=== PATIENT | female | born 1950 | race Caucasian/White ===

== ENCOUNTER 2017-12-01 11:03 | Observation (INO) | payer OTHER ==
--- NOTE | 2017-12-01 11:30 | CPEKG ---
Heart Rate: 153 RR Interval: 392 QRSD Interval: 68 QT Interval: 292 QTC Interval: 466 QRS [place]: 41 T Wave [place]: 47 EKG Severity - ABNORMAL ECG - EKG Impression: ATRIAL FIBRILLATION WITH RAPID V-RATE EKG Impression: LOW VOLTAGE IN FRONTAL LEADS EKG Impression: ABNRM R PROG, CONSIDER ASMI OR LEAD PLACEMENT Electronically Signed By: Figueroa Izquierdo 03-Dec-2017 02:38:42
[2017-12-01] MEDS ORDERED: ASPIRIN 81 MG CHEWABLE TAB ONE (11:48)
[2017-12-01] MEDS ORDERED: DILTIAZEM 25 MG/5 ML VIAL IVP ONE ×2 (11:49→11:52)
[2017-12-01] MEDS ORDERED: DILTIAZEM 125 MG in D5W 125 ML IV ONE (11:52)
[2017-12-01] MEDS ORDERED: NS 500 ML IV ONE (11:52)
[2017-12-01] MEDS ORDERED: ASPIRIN 81 MG CHEWABLE TAB PO ONE (11:52)
[2017-12-01 11:59] LABS: PLATELET COUNT 307 10^3/uL (150-400)
[2017-12-01 12:10] LABS: INR 1.01 (0.83-1.16); PROTIME(PATIENT) 13.5 SEC (12.0-15.0)
--- NOTE | 2017-12-01 12:16 | EDPHY ---
H & P Time Seen by Provider: 12/01/17 11:42 HPI/ROS: CHIEF COMPLAINT: Palpitations, chest pain, dizziness HISTORY OF PRESENT ILLNESS: Patient is a 67-year-old female presents emergency department multiple complaints. She states at 5:00 a.m. She noted some palpitations. She was already awake when the symptoms started. She then went water dog at 7:30 a.m.. She felt lightheaded and dizzy. She states her symptoms have been fairly persistent. Patient also notes that on Sunday she developed pain under her left lateral ribs. She states this felt similar to early onset of zoster. She has not noticed any rash but she did take Valtrex. REVIEW OF SYSTEMS: My complete review of systems is negative except as mentioned in the HPI. Past Medical/Surgical History: Includes thyroid cancer, zoster Past surgical history: Thyroid resection Smoking Status: Never smoked Physical Exam: Vitals noted GENERAL: Well-appearing, in no acute distress, alert. HEENT: Eyes normal to inspection, normal pharynx, no signs of dehydration. NECK: No thyromegaly, no lymphadenopathy, supple. RESPIRATORY: Clear to auscultation bilaterally, no rales, rhonchi or wheezing. CVS: Tachycardia with a irregularly irregular rhythm, no rubs, murmurs, or gallops. ABDOMEN: Soft, nontender, nondistended, no organomegaly. BACK: Normal to inspection, no CVA tenderness. SKIN: Normal color, no rash, warm, dry. No pallor. EXTREMITIES: No pedal edema, no calf tenderness, no Homans sign or cords, no joint swelling. NEURO/PSYCH: Alert and oriented , normal mood and affect, normal motor sensory exam. No obvious cranial nerve deficit. Constitutional: Initial Vital Signs Temperature (C) 36.4 C 12/01/17 11:10 Heart Rate 92 12/01/17 11:10 Respiratory Rate 18 12/01/17 11:10 Blood Pressure 100/68 12/01/17 11:10 O2 Sat (%) 98 12/01/17 11:10 O2 Delivery Mode Room Air Allergies/Adverse Reactions: morphine Allergy (Severe, Verified 12/01/17 11:08) Hypotension acetaminophen [From Percocet] Allergy (Intermediate, Verified 12/01/17 11:08) Itching hydromorphone HCl [From Dilaudid] Allergy (Intermediate, Verified 12/01/17 11:08 ) Itching oxycodone HCl [From Percocet] Allergy (Intermediate, Verified 12/01/17 11:08) Itching meperidine HCl [From Demerol] Allergy (Mild, Verified 12/01/17 11:08) GI upset Home Medications: Medication Instructions Recorded Levothyroxine [Synthroid 112 mcg 112 mcg PO DAILY06 07/22/14 (*)] Valacyclovir HCl [Valtrex] 1,000 mg PO TID PRN 12/01/17 Medical Decision Making ED Course/Re-evaluation: In the emergency department an IV was placed. Laboratory studies, EKG and chest x-ray were ordered. The patient was given diltiazem 10 mg IV bolus. She was subsequently placed on a diltiazem drip. Reviewed the patient's laboratory studies. Her CBC and chemistry unremarkable. Her D-dimer was negative. Troponin was negative. TSH is pending. I discussed case with the hospitalist service. Dr. Mccray will admit. On recheck the patient's heart rate was 102. She was still in atrial fibrillation. I discussed the case with Cardiology. I discussed the plan with the patient. I answered all her questions. I rechecked the patient on numerous occasions. Differential Diagnosis: My differential includes but is not limited to atrial fibrillation, atrial fibrillation with rapid ventricular response, dysrhythmia, electrolyte abnormality, sugar abnormality, thyroid disease, ACS, acute AL, PE Critical Care Time: The patient required 35 min of critical care time. This was exclusive of any unbundled procedure. This was due to the patient's rapid ventricular rate from atrial fibrillation, need for or diltiazem bolus and drip, rechecks, consultation with the hospitalist service and Cardiology. - Data Points Laboratory Results: Laboratory Results 12/01/17 11:30 12/01/17 11:30 12/01/17 12/01/17 12/01/17 11:47 11:30 11:30 WBC RBC Hgb Hct MCV MCH MCHC RDW Plt Count MPV Neut % (Auto) Lymph % (Auto) Valley % (Auto) Eos % (Auto) Baso % (Auto) Nucleat RBC Rel Count Absolute Neuts (auto) Absolute Lymphs (auto) Absolute Monos (auto) Absolute Eos (auto) Absolute Basos (auto) Absolute Nucleated RBC Immature Gran % Immature Gran # PT 13.5 SEC SEC (12.0-15.0) INR 1.01 (0.83-1.16) APTT 28.4 SEC SEC (23.0-38.0) D-Dimer < 0.27 ug/mLFEU ug/mLFEU (0.00-0.50) Sodium 143 mEq/L mEq/L (135-145) Potassium 4.6 mEq/L mEq/L (3.3-5.0) Chloride 109 mEq/L mEq/L (97-110) Carbon Dioxide 20 mEq/l L mEq/l (22-31) Anion Gap 14 mEq/L mEq/L (8-16) BUN 19 mg/dL mg/dL (7-23) Creatinine 1.0 mg/dL mg/dL (0.6-1.0) Estimated GFR 55 Glucose 98 mg/dL mg/dL (70-100) Calcium 9.2 mg/dL mg/dL (8.5-10.4) POC Troponin I 0.02 ng/mL ng/mL (0.00-0.08) TSH Pending 12/01/17 11:30 WBC 9.13 10^3/uL 10^3/uL (3.80-9.50) RBC 4.59 10^6/uL 10^6/uL (4.18-5.33) Hgb 13.9 g/dL g/dL (12.6-16.3) Hct 41.6 % % (38.0-47.0) MCV 90.6 fL fL (81.5-99.8) MCH 30.3 pg pg (27.9-34.1) MCHC 33.4 g/dL g/dL (32.4-36.7) RDW 13.5 % % (11.5-15.2) Plt Count 307 10^3/uL 10^3/uL (150-400) MPV 9.1 fL fL (8.7-11.7) Neut % (Auto) 82.8 % H % (39.3-74.2) Lymph % (Auto) 9.9 % L % (15.0-45.0) Valley % (Auto) 5.6 % % (4.5-13.0) Eos % (Auto) 0.7 % % (0.6-7.6) Baso % (Auto) 0.7 % % (0.3-1.7) Nucleat RBC Rel Count 0.0 % % (0.0-0.2) Absolute Neuts (auto) 7.57 10^3/uL H 10^3/uL (1.70-6.50) Absolute Lymphs (auto) 0.90 10^3/uL L 10^3/uL (1.00-3.00) Absolute Monos (auto) 0.51 10^3/uL 10^3/uL (0.30-0.80) Absolute Eos (auto) 0.06 10^3/uL 10^3/uL (0.03-0.40) Absolute Basos (auto) 0.06 10^3/uL 10^3/uL (0.02-0.10) Absolute Nucleated RBC 0.00 10^3/uL 10^3/uL (0-0.01) Immature Gran % 0.3 % % (0.0-1.1) Immature Gran # 0.03 10^3/uL 10^3/uL (0.00-0.10) PT INR APTT D-Dimer Sodium Potassium Chloride Carbon Dioxide Anion Gap BUN Creatinine Estimated GFR Glucose Calcium POC Troponin I TSH Medications Given: Discontinued Medications Aspirin (Aspirin) 324 mg PO EDNOW ONE Stop: 12/01/17 11:53 Last Admin: 12/01/17 11:55 Dose: 324 mg Diltiazem HCl (Cardizem 25 Mg/5 Ml Vial) 10 mg IVP EDNOW ONE Stop: 12/01/17 11:53 Last Admin: 12/01/17 11:55 Dose: 10 mg Sodium Chloride (Ns) 500 mls @ 1,000 mls/hr IV EDNOW ONE PRN Reason: Protocol Stop: 12/01/17 12:21 Last Admin: 12/01/17 11:55 Dose: 500 mls Point of Care Test Results: Chemistry 12/01/17 11:47 POC Troponin I 0.02 ng/mL ng/mL (0.00-0.08) Departure - Departure Disposition: [facility] Acute Clinical Impression: Atrial fibrillation Qualifiers: Atrial fibrillation type: unspecified Qualified Code(s): I48.91 - Unspecified atrial fibrillation Condition: Good
[2017-12-01] MEDS ORDERED: ONDANSETRON DISINTEGRATING 4 MG TAB PO PRN (12:52)
[2017-12-01] MEDS ORDERED: ONDANSETRON 4 MG/2 ML VIAL IVP PRN (12:52)
[2017-12-01] MEDS ORDERED: NS 1,000 ML IV SCH (13:00)
[2017-12-01] MEDS ORDERED: DILTIAZEM 125 MG in D5W 125 ML IV SCH (13:00)
--- NOTE | 2017-12-01 14:50 | SOAPPROG ---
SOAP Progress Note Assessment/Plan: Assessment: cardiology consultation performed and dictated. 67 y/o woman with previous thyroid cancer s/p total thyroidectomy in 1972 and daily moderate to heavy ETOH (3-4 vodka tonics/day) awoke 5am this morning with heart racing and pounding and dizzy. In ER Afib at 155bpm. Had reportedly normal ETT stress test and echo 2014. Had one similar episode of heart racing for ten minutes a year ago. Usually able to walk her [place] for [place] hour in [place] without sx. PLAN: 1)continue on IV diltiazem gtt 2)continue with PO Metoprolol 3)continue BID Lovenox 4)transthoracic echo today 5)allow to eat today. 6)NPO after midnight and if still in afib in AM...MATT/CV 7)probably transition to PO Eliquis upon discharge. 8)ETOH reduction advise. Thanks. Will follow with you. 12/01/17 14:47 Objective: Vital Signs Temp Pulse Resp BP Pulse Ox 36.5 C 101 H 18 99/66 L 90 L 12/01/17 13:57 12/01/17 13:57 12/01/17 13:57 12/01/17 13:57 12/01/17 13:57 PT 13.5 SEC (12.0-15.0) 12/01/17 11:30 INR 1.01 (0.83-1.16) 12/01/17 11:30 ICD10 Worksheet Patient Problems: Problems Problem Status Onset Atrial fibrillation Acute Chest pain Acute
[2017-12-01] MEDS: ENOXAPARIN 80 MG/0.8 ML SYR SC SCH (15:05)
[2017-12-01] MEDS: METOPROLOL TARTRATE 25 MG TAB PO SCH (15:05)
--- NOTE | 2017-12-01 15:54 | GCON ---
[f rep st] CONSULTATION CARDIOLOGY CONSULT DATE OF CONSULTATION: 12/01/2017 REASON FOR CONSULTATION: Evaluate woman with new onset atrial fibrillation with rapid ventricular re sponse and dizziness. HISTORY OF PRESENT ILLNESS: I was asked by Dr. Adam Sahu to consult for the above reasons. The pa karen is a 67-year-old woman with no previous cardiac problems. She reports that 2 years ago when palomo niño had an episode of shingles over her left chest, she had a treadmill stress test and echo, which wer e unremarkable. About a year ago she had an episode where her heart raced for about 10 minutes and t chance went away on its own. Normally she can walk her dog for about an hour in the [place] without chest pain or shortness of breath. She has been having a mild ache in her chest for the las t 3 days. Today, she awoke at 5 a.m. with a sensation of her heart racing associated with dizziness. She came to the emergency room and was then atrial fibrillation at 155 beats per minute. She was s tarted on an IV diltiazem drip and her heart rate is now of 90 and she is asymptomatic. She denies c hest pressure, TIA symptoms, or near syncope. PAST MEDICAL HISTORY: Remote thyroid cancer status post thyroidectomy, an episode of shingles 2 year s ago, and daily xexcghpr-fi-nmold alcohol use. PAST SURGICAL HISTORY: Complete thyroidectomy in 1972, , right knee replacement. CURRENT MEDICATIONS: Diltiazem drip, Lovenox 70 mg b.i.d., and metoprolol tartrate 25 mg b.i.d. ALLERGIES: No known drug allergies. SOCIAL HISTORY: The patient is . She does not smoke cigarettes. She has 3-4 vodka tonics a day. FAMILY HISTORY: Positive for premature coronary artery disease in her sisters. REVIEW OF SYSTEMS: Patient reports no headaches, fevers or chills or hemoptysis. She has no GI blee d symptoms such as hematemesis, melena, or bright red blood per rectum. Rest of 10-point review of s ystems is negative. PHYSICAL EXAM: VITAL SIGNS: Afebrile, pulse 90, blood pressure 115/70, respirations 18, weight 75.7 kg. GENERAL: A normal-appearing woman in no acute distress without chest pain or using excess resp iratory muscles. EYES: Pupils equal, reactive to light. ENT: Oral mucosa with no cyanosis. NECK: Jugular venous pressure to 7 cm. Carotid pulses 2+ bilaterally with no obvious bruits. No thyrome daphnie noted. LUNGS: Clear to auscultation bilaterally without rales, rhonchi, or wheezing. HEART: Irregularly irregular rhythm with 1/6 nonradiating systolic murmur and no S3. ABDOMEN: Soft and non tender. No hepatosplenomegaly. No guarding or rebound. EXTREMITIES: 2+ peripheral pulses includin g femoral and pedal pulses. No edema noted. MUSCULOSKELETAL: No scoliosis. NEURO: Normal affect and mood. DIAGNOSTIC STUDIES: EKG: Atrial fibrillation with rapid ventricular response. No acute ST depressi on or elevation noted. LABS: White count 9.1, hematocrit 42, platelets 307,000, MCV 91. INR 1.01. Sodium 143, potassium 4 .6, chloride 109, bicarb 20, BUN 19, creatinine 1.0, glucose 98. Troponin 0.02. TSH 4.8. IMPRESSION AND PLAN: A 67-year-old woman with new onset atrial fibrillation at 153 beats per minute of unknown duration. 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 I do not think she is having unstable angina. PLAN: 1. No change in current medications including diltiazem drip, Lovenox, and p.o. metoprolol. 2. We will get a transthoracic echocardiogram today to evaluate LV function and left atrial size and valvular function. 3. If she does not self convert to sinus rhythm in the next 18 hours on her diltiazem drip, we will do a MATT cardioversion in the morning. 4. Discussed with her the need to decrease or stop her alcohol intake. 5. We will try to track down her last cardiac testing to make sure she had a normal stress test 2 ye ars ago. /[id number]/MODL
[2017-12-01] MEDS ORDERED: PSEUDOEPHEDRINE PO PRN (16:04)
[2017-12-01] MEDS ORDERED: FEXOFENADINE PO PRN (16:04)
[2017-12-01] MEDS ORDERED: valACYclovir 500 MG TAB PO PRN (16:15)
--- NOTE | 2017-12-01 16:26 | PDGENHP ---
History and Physical - Chief Complaint Acute palpitation - History of Present Illness Primary care provider: Dr. Ricks HPI: 67-year-old female presenting with acute palpitations and subsequent dizziness characterized as lightheadedness exacerbated by ambulation. Patient reports that she awoke at 5:00 a.m. On the day of presentation and began experiencing palpitations at that time. At approximately 7:30 a.m., she stood up and began engaging in normal by activities of daily living, and noted the dizziness. The symptoms are occurring in the context of experiencing acute left -sided chest pain located under her left breast approximately 4 days ago and of constant duration thereafter. She reports that the pain is exacerbated by laying on her left side or by taking deep breaths. She took some Valley acyclovir and the pain was not alleviated. She reports that is very similar in character to her shingles pain experienced 3 years ago, but she has not noted any skin changes. The patient does note that approximately 1 week ago she began experiencing which she describes as cold-like symptoms including sinus congestion, for which she took some fovy-nmm-cajabug Benadryl and nonsteroidal anti-inflammatory. History Information - Allergies/Home Medication List Allergies/Adverse Reactions: morphine Allergy (Severe, Verified 12/01/17 11:08) Hypotension acetaminophen [From Percocet] Allergy (Intermediate, Verified 12/01/17 11:08) Itching hydromorphone HCl [From Dilaudid] Allergy (Intermediate, Verified 12/01/17 11:08 ) Itching oxycodone HCl [From Percocet] Allergy (Intermediate, Verified 12/01/17 11:08) Itching meperidine HCl [From Demerol] Allergy (Mild, Verified 12/01/17 11:08) GI upset Home Medications: Levothyroxine [Synthroid 112 mcg (*)] 112 mcg PO DAILY06 07/22/14 [Last Taken ] Fexofenadine/Pseudoephedrine [Morena-D 12 Hour Tablet] 1 each PO DAILY PRN [Last Taken Unknown] Valacyclovir HCl [Valtrex] 1,000 mg PO TID PRN 12/01/17 [Last Taken 11/30/17] I have personally reviewed and updated: family history, medical history, social history, surgical history - Past Medical History Additional medical history: Thyroid cancer in the 1970s. Shingles. Osteoarthritis. Hyperlipidemia. Provoked atrial fibrillation in the by bony verma, did not require tran blocking agents at that time, spontaneously cardioverted - Surgical History Additional surgical history: Knee surgery. Ovarian cyst surgery. Thyroidectomy 1973 - Family History Additional family history: Sibling with myocardial infarction at age 67. Mother with Parkinson's disease. Father with suicide at age 36 in the setting of malignancy. No family history of venous thromboembolism - Social History Smoking Status: Never smoked Alcohol Use: Other (Patient regularly drink alcohol on the week prior to this presentation, slightly more than she normally consumes, consumed 4 alcoholic beverages on the night prior to this presentation) Drug Use: None Additional social history: Normally physically active, does not experience chest pain or shortness of breath with ambulation or mild exercise Review of Systems Review of Systems: ROS: 10pt was reviewed & negative except for what was stated in HPI & below Cardiac: Reports: chest pain, lightheadedness, palpitations Physical Exam Physical Exam: Temp Pulse Resp BP Pulse Ox 36.5 C 101 H 18 99/66 L 90 L 12/01/17 13:57 12/01/17 13:57 12/01/17 13:57 12/01/17 13:57 12/01/17 13:57 Constitutional: no apparent distress, appears nourished, not in pain Eyes: PERRL, anicteric sclera, EOMI Ears, Nose, Mouth, Throat: moist mucous membranes, hearing normal, ears appear normal, no oral mucosal ulcers Cardiovascular: irregularly irregular, tachycardia, No systolic murmur, No edema Respiratory: no respiratory distress, no rales or rhonchi, clear to auscultation Gastrointestinal: normoactive bowel sounds, soft, non-tender abdomen, no palpable masses Skin: No abrasion, No rash (On her left chest) Musculoskeletal: other (Full range of motion left shoulder without any pain, no tenderness palpation over left pectoralis muscle, no tenderness to palpation over left ribs) Neurologic: AAOx3, sensation intact bilaterally, No weakness Psychiatric: interacting appropriately, not anxious, not encephalopathic, thought process linear Lab Data & Imaging Review 12/01/17 11:30 12/01/17 11:30 WBC 9.13 10^3/uL (3.80-9.50) 12/01/17 11:30 RBC 4.59 10^6/uL (4.18-5.33) 12/01/17 11:30 Hgb 13.9 g/dL (12.6-16.3) 12/01/17 11:30 Hct 41.6 % (38.0-47.0) 12/01/17 11:30 MCV 90.6 fL (81.5-99.8) 12/01/17 11:30 MCH 30.3 pg (27.9-34.1) 12/01/17 11:30 MCHC 33.4 g/dL (32.4-36.7) 12/01/17 11:30 RDW 13.5 % (11.5-15.2) 12/01/17 11:30 Plt Count 307 10^3/uL (150-400) 12/01/17 11:30 MPV 9.1 fL (8.7-11.7) 12/01/17 11:30 Neut % (Auto) 82.8 % (39.3-74.2) H 12/01/17 11:30 Lymph % (Auto) 9.9 % (15.0-45.0) L 12/01/17 11:30 [place] % (Auto) 5.6 % (4.5-13.0) 12/01/17 11:30 Eos % (Auto) 0.7 % (0.6-7.6) 12/01/17 11:30 Baso % (Auto) 0.7 % (0.3-1.7) 12/01/17 11:30 Nucleat RBC Rel Count 0.0 % (0.0-0.2) 12/01/17 11:30 Absolute Neuts (auto) 7.57 10^3/uL (1.70-6.50) H 12/01/17 11:30 Absolute Lymphs (auto) 0.90 10^3/uL (1.00-3.00) L 12/01/17 11:30 Absolute Monos (auto) 0.51 10^3/uL (0.30-0.80) 12/01/17 11:30 Absolute Eos (auto) 0.06 10^3/uL (0.03-0.40) 12/01/17 11:30 Absolute Basos (auto) 0.06 10^3/uL (0.02-0.10) 12/01/17 11:30 Absolute Nucleated RBC 0.00 10^3/uL (0-0.01) 12/01/17 11:30 Immature Gran % 0.3 % (0.0-1.1) 12/01/17 11:30 Immature Gran # 0.03 10^3/uL (0.00-0.10) 12/01/17 11:30 PT 13.5 SEC (12.0-15.0) 12/01/17 11:30 INR 1.01 (0.83-1.16) 12/01/17 11:30 APTT 28.4 SEC (23.0-38.0) 12/01/17 11:30 D-Dimer < 0.27 ug/mLFEU (0.00-0.50) 12/01/17 11:30 Sodium 143 mEq/L (135-145) 12/01/17 11:30 Potassium 4.6 mEq/L (3.3-5.0) 12/01/17 11:30 Chloride 109 mEq/L (97-110) 12/01/17 11:30 Carbon Dioxide 20 mEq/l (22-31) L 12/01/17 11:30 Anion Gap 14 mEq/L (8-16) 12/01/17 11:30 BUN 19 mg/dL (7-23) 12/01/17 11:30 Creatinine 1.0 mg/dL (0.6-1.0) 12/01/17 11:30 Estimated GFR 55 12/01/17 11:30 Glucose 98 mg/dL (70-100) 12/01/17 11:30 Calcium 9.2 mg/dL (8.5-10.4) 12/01/17 11:30 POC Troponin I 0.02 ng/mL (0.00-0.08) 12/01/17 11:47 TSH 4.840 uIU/mL (0.465-4.680) H 12/01/17 11:30 Visualized and Interpreted Chest x-ray results: Yes Chest X-Ray results: no infiltrate Visualized and Interpreted EKG results: Yes EKG Interpretation: Positive for: other (Atrial fibrillation with acute rapid ventricular response, poor R-wave progression in lead V2) Assessment & Plan Assessment: 67 year-old female presents with new onset of atrial fibrillation with acute rapid ventricular response Plan: 1. Atrial fibrillation. Acute, new problem this provider, further workup indicated. Rapid ventricular response requiring rate control, unclear precipitating event -the patient may be experiencing pericarditis or pleuritis with symptoms of positional chest pain, pleuritic component, approximately 1 week following what sounds like a URI -trend troponins -TSH checked, thyroid not over repleted -check transthoracic echocardiogram -initiated on diltiazem drip, wean off now that oral metoprolol has been initiated, up titrate her oral metoprolol as needed -initiated systemic anticoagulation with plan to cardiovert tomorrow if she does not chemically cardiovert overnight -discussed with Dr. Eloy Castro, consultation appreciated, he has recommended the above treatment strategy 2. Chest pain. Acute, given the persistent nature with negative biomarkers, suspect that this is pericarditis or pleuritic, and cycle cardiac enzymes, hold on cardiac risk stratification -reviewed outside records including 07/23/[address] Marcel Raya, reports the patient was experiencing atypical chest pain at that time, her stress test was normal -patient may undergo outpatient nuclear med stress test following this acute episode of care after her AFib has stabilized Diet. Regular, NPO after midnight Prophylaxis. High risk patient, currently on systemic anticoagulation Code. Full Disposition. Anticipated discharge 12/02, pending stabilization of above.
--- NOTE | 2017-12-01 17:52 | ECHO ---
[email or web address] [address] [address] Main: [phone] Fax: Transthoracic Echocardiogram Name: DENISE GOLDBERG MR#: [id number] Study Date: 12/01/2017 Study Time: 02:43 PM Date of : 1950 Age: 67 year(s) Height: 170.2 cm (67 in.) Weight: 74.39 kg (164 lb.) BSA: 1.86 m2 Gender: Female Examination: Echo Indication: NEW AFIB Image Quality: Adequate Contrast: Requested by: Adam Sahu BP: 103 mmHg/69 mmHg Heart Rate: Rhythm: Indication: NEW AFIB Procedure Staff [employer] [employer] Teacher: Germaine Kapoor RD Reading Physician: Eloy Castro MD Requesting Provider: Conclusions: 1)Atrial fibrilation with heart rate 67 bpm. 2)Normal LV size and systolic function with a LVEF of 57% and normal wall motions. 3)Normal size left and right atria. 4)Mild MR without MV prolapse. 5)Mild to moderate TR with estimated normal PA pressures. Measurements: Chambers Valvular Assessment AV/MV Valvular Assessment TV/PV Normal Normal Normal Name Value Range Name Value Range Name Value Range Ao Shazia (2D): 3.3 cm (1.4 cm-2.6 AV Vmax: 1.20 m/s (1 m/s-1.7 TR Vmax: 2.81 mm/s ( - ) cm) m/s) TR PGmax: 32 mmHg ( - ) IVSd (2D): 1.0 cm (0.6 cm-1.1 AV maxP mmHg ( - ) syst. PAP: 37 mmHg ( - ) cm) AV meanP mmHg ( - ) PV Vmax: 0.77 m/s (0.6 m/s-0.9 LVDd (2D): 3.8 cm (3.9 cm-5.3 ROE (VTI): 1.9 cm ( - ) m/s) cm) MV E Vmax: 0.86 m/s ( - ) PV PGmax: 2 mmHg ( - ) LVDs (2D): 2.7 cm (2.1 cm-4 MV PHT: 0.056 s ( - ) cm) MVA (PHT): 3.9 s ( - ) LVPWd (2D): 1.0 cm ( - ) LVOTd 1.8 cm 1.8 cm mm LVEF (BP): 57 % (>=55 %) RVDd(2D): 3.8 cm (1.9 cm-3.8 cmmm) Continued Measurements: Chambers Valvular Assessment AV/MV Valvular Assessment TV/PV Name Value Name Value Name Value LADs: 3.6 cm MV DecTime: 173 m/s CVP (est.): 5 mmHg LADs Lon.5 cm MV E' Septal: 0.09 m/s Patient: DENISE GOLDBERG Study Date: 12/01/2017 Page 1 of 2 02:43 PM LA Area: 18.0 cm2 MV E/E' Septal: 9.90 LA Volume: 55 ml MV E/E' Lateral: 6.30 LA Volume Index: 29.6 ml/m2 RA Area: 20.2 cm2 Additional Vessels Name Value Ao Ascendin.2 cm Inferior Vena Cava: 1.7 cm Findings: Left Ventricle: Normal size left ventricle. No LV hypertrophy. Normal global systolic LV function. EF is 57 %. No regional wall motion abnormality. Unable to assess diastolic dysfunction. Right Ventricle: Normal size right ventricle. Normal RV function. Left Atrium: The left atrium is normal in size. Right Atrium: The right atrium is normal in size. Mitral Valve: The mitral valve is normal in appearance and function. Mild mitral valve regurgitation is present. No mitral stenosis is present. Aortic Valve: The aortic valve is normal in appearance and function. There is no significant aortic valve regurgitation. No aortic valve stenosis is present. Tricuspid Valve: The tricuspid valve is normal in appearance and function. Mild to moderate tricuspid valve regurgitation. The pulmonary artery pressure is mildly increased. Right ventricular systolic pressure measures 37mmHg. Pulmonic Valve: The pulmonic valve is normal in appearance and function. There is no pulmonic regurgitation seen. Aorta: The aorta is normal. Normal size aortic root measuring 3.3 cm. Normal size ascending aorta measuring 3.2 cm. IVC: The IVC is normal sized. Pericardium: No pericardial effusion. No pleural effusion. (No Signature Object) Patient: DENISE GOLDBERG Study Date: 12/01/2017 Page 2 of 2 02:43 PM [id number]
[2017-12-01] MEDS ORDERED: NS BOLUS 500 ML (Wide open) IV ONE (19:30)
[2017-12-02] MEDS: ENOXAPARIN 80 MG/0.8 ML SYR SC SCH ×3 (01:29→11:05)
[2017-12-02] MEDS: METOPROLOL TARTRATE 25 MG TAB PO SCH ×2 (01:40→11:05)
[2017-12-02 04:14] LABS: PLATELET COUNT 253 10^3/uL (150-400)
[2017-12-02 04:17] LABS: INR 1.1 (0.83-1.16); PROTIME(PATIENT) 14.4 SEC (12.0-15.0)
[2017-12-02] MEDS ORDERED: ATROPINE SULFATE 1 MG/10 ML SYR IVP ONE (06:00)
[2017-12-02] MEDS ORDERED: LEVOTHYROXINE 112 MCG TAB PO SCH (06:00)
--- NOTE | 2017-12-02 06:19 | CPEKG ---
Heart Rate: 111 RR Interval: 541 QRSD Interval: 68 QT Interval: 344 QTC Interval: 468 QRS [place]: 29 T Wave [place]: 26 EKG Severity - ABNORMAL ECG - EKG Impression: ATRIAL FIBRILLATION, V-RATE 79-138 EKG Impression: LOW VOLTAGE IN FRONTAL LEADS EKG Impression: BORDERLINE R WAVE PROGRESSION, ANTERIOR LEADS Electronically Signed By: Figueroa Izquierdo 03-Dec-2017 02:36:12
--- NOTE | 2017-12-02 07:50 | SOAPPROG ---
SOAP Progress Note Assessment/Plan: Assessment: 67 y/o woman with previous thyroid cancer s/p total thyroidectomy in 1972 and daily moderate to heavy ETOH (3-4 vodka tonics/day) with afib with RVR. Echo yesterday with normal LVEF and mild-moderate TR and mild AMAURY. She is still in afib but ventricular rate better controlled. Although mild troponin rise, I do not think she is having unstable angina. PLAN: 1)MATT/CV today with anesthesia assisting. 2)once hopefully back in NSR, probably send home on Toprol XL and Eliquis later today. 3)f/u [facility] in 10-14 days with ecg. 4)out-pt ETT cardiolite in 3-4 weeks once back in NSR. 5)stop ETOH use. 12/02/17 07:47 Subjective: still mild ache over left chest wall. Feels better than yesterday. Denies dizziness, chest pressure or PND. Objective: Vital Signs Temp Pulse Resp BP Pulse Ox 36.9 C 99 16 112/77 93 12/02/17 03:56 12/02/17 03:56 12/02/17 03:56 12/02/17 03:56 12/02/17 03:56 Laboratory Results 12/02/17 03:22 12/02/17 03:22 12/01/17 12/02/17 12/03/17 05:59 05:59 05:59 Intake Total 935 Balance 935 PT 14.4 SEC (12.0-15.0) 12/02/17 03:22 INR 1.10 (0.83-1.16) 12/02/17 03:22 Physical Exam - Physical Exam EENT: normal ENT inspection Neck: full range of motion Respiratory: lungs clear Cardiac/Chest: irregularly irregular, No gallop, No JVD, No systolic murmur Peripheral Pulses: 2+: carotid (R), carotid (L), femoral (R), femoral (L), dorsalis-pedis (R), dorsalis-pedis (L) Abdomen: soft, No distended, No guarding, No rebound Pelvic Exam: deferred Rectal: deferred Skin: warm/dry Extremities: No pedal edema Neuro/Psych: alert ICD10 Worksheet Patient Problems: Problems Problem Status Onset Atrial fibrillation Acute Chest pain Acute
[2017-12-02] MEDS ORDERED: PROPOFOL 200 MG/20 ML VIAL ONE ×2 (09:30)
[2017-12-02] MEDS ORDERED: ATROPINE SULFATE 1 MG/10 ML SYR ONE (09:35)
--- NOTE | 2017-12-02 09:57 | PDTEE1 ---
MATT Cardioversion Procedure Indications: atrial fibrillation Consent: signed and in chart Anticoagulation: lovenox Procedural Details: Pads were placed in anterior-posterior position. MATT probe was advanced and standard images obtained. There is no evidence of left atrial or left atrial appendage thrombus. Synchronized cardioversion attempt #1: 200J Results: normal sinus rhythm Conclusions: successful MATT cardioversion Conclusion Comment: 1)no BRIAN clot. See full MATT report for details. REC: 1) stop Lovenox, Diltiazem gtt and Metoprolol tartrate. 2)start Toprol XL 25mg PO qam. 3)start Eliquis 5mg PO BID. 4)allow to eat cardiac diet in one hour if awake and protecting airway without aspiration. 5)okay to discharge home this afternoon. 6)my office will call patient tomorrow to see how feeling and set up f/u [facility] with ecg in 10-14 days. 7)ETT cardiolite in 3-4 weeks as outpatient. Patient Problems: Problems Problem Status Onset Atrial fibrillation Acute Chest pain Acute
--- NOTE | 2017-12-02 09:58 | CPEKG ---
Heart Rate: 78 RR Interval: 769 P-R Interval: 172 QRSD Interval: 72 QT Interval: 388 QTC Interval: 442 P [place]: 65 QRS [place]: 1 T Wave [place]: 26 EKG Severity - BORDERLINE ECG - EKG Impression: SINUS RHYTHM EKG Impression: BORDERLINE R WAVE PROGRESSION, ANTERIOR LEADS Electronically Signed By: Figueroa Izquierdo 03-Dec-2017 02:36:02
[2017-12-02] MEDS ORDERED: APIXABAN 5 MG TAB PO SCH (10:00)
[2017-12-02] MEDS ORDERED: METOPROLOL SUCCINATE XR 25 MG TAB PO SCH (10:00)
[2017-12-02] MEDS ORDERED: NALOXONE HCL 0.4 MG/ML INJ IVP PRN (10:10)
[2017-12-02] MEDS ORDERED: ONDANSETRON 4 MG/2 ML VIAL IVP PRN (10:10)
--- NOTE | 2017-12-02 10:10 | PDANEPAE ---
ANE Past Medical History - Cardiovascular History Hx Hypertension: No Hx Arrhythmias: Yes Hx Chest Pain: No Hx Coronary Artery / Peripheral Vascular Disease: No Hx CHF / Valvular Disease: No Hx Palpitations: Yes - Pulmonary History Hx COPD: No Hx Asthma/Reactive Airway Disease: No Hx Recent Upper Respiratory Infection: No Hx Oxygen in Use at Home: No Hx Sleep Apnea: No Sleep Apnea Screening Result - Last Documented: Negative - Endocrine History Hx Diabetes: No Obesity: no - Chronic Pain History Chronic Pain: No ANE Review of Systems Review of Systems: - Exercise capacity METS (RN): 4 METS ANE Patient History - Allergies Allergies/Adverse Reactions: morphine Allergy (Severe, Verified 12/01/17 11:08) Hypotension acetaminophen [From Percocet] Allergy (Intermediate, Verified 12/01/17 11:08) Itching hydromorphone HCl [From Dilaudid] Allergy (Intermediate, Verified 12/01/17 11:08 ) Itching oxycodone HCl [From Percocet] Allergy (Intermediate, Verified 12/01/17 11:08) Itching meperidine HCl [From Demerol] Allergy (Mild, Verified 12/01/17 11:08) GI upset - Home Medications Home Medications: Levothyroxine [Synthroid 112 mcg (*)] 112 mcg PO DAILY06 07/22/14 [Last Taken ] Fexofenadine/Pseudoephedrine [Morena-D 12 Hour Tablet] 1 each PO DAILY PRN [Last Taken Unknown] Valacyclovir HCl [Valtrex] 1,000 mg PO TID PRN 12/01/17 [Last Taken 11/30/17] - NPO status NPO Status: no food or drink >8 hours NPO Since - Liquids (Date): 12/01/17 NPO Since - Liquids (Time): 23:45 NPO Since - Solids (Date): 12/01/17 NPO Since - Solids (Time): 22:30 - Anes Hx Anes Hx: no prior problems - Smoking Hx Smoking Status: Never smoked - Alcohol Use Alcohol Use: Other (Patient regularly drink alcohol on the week prior to this presentation, slightly more than she normally consumes, consumed 4 alcoholic beverages on the night prior to this presentation) ANE Labs/Vital Signs - Labs Result Diagrams: 12/02/17 03:22 12/02/17 03:22 - Vital Signs Blood Pressure: 116/80 Heart Rate: 133 Respiratory Rate: 12 O2 Sat (%): 96 Height: 170.18 cm Weight: 76.113 kg ANE Physical Exam - Airway Neck exam: FROM Mallampati Score: Class 2 Mouth exam: normal dental/mouth exam - Pulmonary Pulmonary: no respiratory distress, no rales or rhonchi - Cardiovascular Cardiovascular: irregularly irregular - ASA Status ASA Status: III ANE Anesthesia Plan Anesthesia Plan: GA with mask
--- NOTE | 2017-12-02 10:16 | POSTANESTH ---
Post Anesthetic Evaluation Cardiovascular Status: Normal, Stable Respiratory Status: Normal, Stable, Similar to Pre-op Cond. Level of Consciousness/Mental Status: Can Participate in Eval, Alert and Oriented Pain Control: Adequate, Prn Tx Ordered Nausea/Vomiting Control: Adequate, Prn Tx Ordered Complications Possibly Related to Anesthesia: None Noted
[2017-12-02] MEDS ORDERED: LIDOCAINE 2% VISCOUS 15 ML UDCUP PO PRN (11:20)
[2017-12-02] MEDS ORDERED: PANTOPRAZOLE SODIUM 40 MG TAB PO ONE (11:21)
[2017-12-02] MEDS ORDERED: ACETAMINOPHEN 500 MG TAB PO PRN (11:30)
[2017-12-02] MEDS ORDERED: ACETAMINOPHEN 500 MG TAB PO ONE (11:30)
[2017-12-02 11:34] VITALS: BP 138/86
--- NOTE | 2017-12-02 12:08 | CPEKG ---
Heart Rate: 67 RR Interval: 896 P-R Interval: 168 QRSD Interval: 72 QT Interval: 392 QTC Interval: 414 P [place]: 60 QRS [place]: 12 T Wave [place]: 25 EKG Severity - ABNORMAL ECG - EKG Impression: SINUS RHYTHM EKG Impression: CONSIDER ANTEROSEPTAL INFARCT Electronically Signed By: Figueroa Izquierdo 03-Dec-2017 02:35:58
--- NOTE | 2017-12-02 12:38 | ASMTCMCOM ---
CM Note CM Note Notes: 12/02/2017 Case Management Note Discussed pt during rounds this morning. Son Teodoro [phone] present. Pt admitted for afib with cardioversion performed today. There are no case management d/c needs identified. Pt lives independently. There are no PT or OT evals ordered at this time. Case Management d/c poc: independent with follow up as directed. Case Mangement available if needs change. Date Signed: 12/02/2017 12:37 PM Electronically Signed By:Denisse Thayer RN
--- NOTE | 2017-12-02 15:48 | ASMTDCNOTE ---
Case Management Discharge Discharge Order Complete? Answers: Yes Patient to Obtain Answers: Independently Medications Transportation Arranged Answers: Family/Friends Family Notified Answers: Yes Notes: in room Discharge Comments Notes: 12/02/2017 See previous case management note. Pt to d/c independent with follow up as directed. Date Signed: 12/02/2017 03:47 PM Electronically Signed By:Denisse Thayer RN
--- NOTE | 2017-12-02 15:51 | ASDISCHSUM ---
Discharge Information Plan Status:Home with No Needs Medically Cleared to Leave:12/02/2017 Discharge Date:12/02/2017 CM D/C Disposition:Home, Routine, Self-Care ADT D/C Disposition:Home, Routine, Self-Care Projected Discharge Date:12/02/2017 Transportation at D/C: Discharge Delay Reason: Follow-Up Date:12/02/2017 Discharge Slot: Final Diagnosis: Placement Information Patient Contact Information Contact Name:ALIA Relationship:Lobo Address: Work Phone: City:[place] Phone: State/[place] Code:[place] [address] Email: Financial Information Financial Class:Medicare Primary Plan Desc:MEDICARE OUTPATIENT Primary Plan Number:[id number] Secondary Plan Desc:[facility] Secondary Plan Number:[id number] Assessment Information [facility] CM Progress Note CM Note CM Note Notes: 12/02/2017 Case Management Note Discussed pt during rounds this morning. Lobo Valerio [phone] present. Pt admitted for afib with cardioversion performed today. There are no case management d/c needs identified. Pt lives independently. There are no PT or OT evals ordered at this time. Case Management d/c poc: independent with follow up as directed. Case Mangement available if needs change. Date Signed: 12/02/2017 12:37 PM Electronically Signed By:Denisse Thayer RN Case Management Discharge Plan Note Case Management Discharge Discharge Order Complete? Answers: Yes Patient to Obtain Answers: Independently Medications Transportation Arranged Answers: Family/Friends Family Notified Answers: Yes Notes: in room Discharge Comments Notes: 12/02/2017 See previous case management note. Pt to d/c independent with follow up as directed. Date Signed: 12/02/2017 03:47 PM Electronically Signed By:Denisse Thayer RN LACE LACE Length of stay for Answers: 1 day current admission Acuity / Level of Answers: No Care: Did the patient have an inpatient admission? Comorbidities - select Answers: Any tumor (including all that apply lymphoma or leukemia) Other Notes: h/o thyroid cancer, shingles, osteo art hritis, hyperlipidemia, h/ o afib that spontaneous ly cardioverted in the . # of Emergency department Answers: 1-2 visits in the last 6 months Score: 5 Date Signed: 12/02/2017 03:50 PM Electronically Signed By:Denisse Thayer RN Intervention Information Intervention Type:*NANCE-Signed Date of Service:12/02/2017 12:34 PM Patient Type:Observation Staff Member:NASIR Thayer, Denisse Hours: Discipline: Severity: Comment:
--- NOTE | 2017-12-02 18:58 | PDDCSUM ---
Discharge Summary Discharge Summary: DISCHARGE SUMMARY FOLLOW-UP ITEMS: 1. Stress test as outpatient DATE OF ADMISSION: 12/01/2017 DATE OF DISCHARGE: 12/02/2017 DISCHARGE DIAGNOSES: 1. New onset atrial fibrillation with acute rapid ventricular response 2. Acute demand ischemia 3. Right shoulder muscular pain CONSULTATIONS: Cardiology PROCEDURES / IMAGING: DC cardioversion with transesophageal echocardiogram Echocardiogram transthoracically demonstrating ejection fraction 50%, no focal wall motion abnormalities, mild mitral regurgitation CHIEF COMPLAINT: Acute chest heaviness SUBJECTIVE: Patient is feeling well at time discharge, she continues to experience some aching discomfort in her right shoulder PHYSICAL EXAM ON DISCHARGE: Systolic blood pressure 100-120, heart rate 75 normal sinus mechanism, afebrile overnight, satting well on room air, alert awake oriented x3, no tenderness to palpation over the anterior chest, lungs are clear to auscultation bilaterally, heart rhythm is regular, regular rate, right shoulder has full range of motion without any pain elicited in the rotator cuff on internal and external rotation of the arm, full passive range of motion and flexion of the right shoulder without any pain, tenderness to palpation over the right upper pectoralis muscle as well as right upper trapezius muscle LABS ON DISCHARGE: Discharge troponin level 0.05, creatinine 0.9, white blood cell count 6400 HOSPITAL COURSE BY PROBLEM: The patient presented with new onset atrial fibrillation with acute rapid ventricular response, and was initially rate controlled on a diltiazem drip and initiated on oral metoprolol tartrate. She did experience some acute demand ischemia, with a peak troponin of 0.08, downtrend 0.05 at discharge She did not chemically cardiovert and so she subsequently underwent DC cardioversion with transesophageal echocardiogram on 12/02, after receiving systemic anticoagulation. It is unclear what precipitated her atrial fibrillation, although she had recently been consuming a slightly increased amount of alcohol from her baseline, and this may have been a contributing factor. We counseled the patient to reduce her alcohol intake, continue metoprolol ER succinate 25 mg daily, and continue to utilize systemic anticoagulation for at least 30 days. She will follow up with Dr. Eloy Castro as an outpatient, have a treadmill stress test in approximately 4 weeks, and then have ongoing conversations regarding anticoagulation necessity. Prior to discharge, the patient did experience some anterior chest discomfort which was most likely secondary to esophageal irritation from the transesophageal echocardiogram probe , and she received viscous lidocaine as well as proton pump inhibitor with success. We recommended that she utilize an as-needed [id number] H2 briana for the next several weeks as well as as needed viscous lidocaine. She also experienced some right-sided muscular shoulder discomfort, most likely secondary to strain, and I recommended heat pad, icing, as needed Tylenol for this issue. DISCHARGE MEDICATIONS: Please see official discharge medication reconciliation sheet in chart , metoprolol succinate 25 mg daily, Eliquis 5 mg twice daily, as needed viscous lidocaine, scheduled ranitidine 150 twice daily, as needed Tylenol. DISCHARGE INSTRUCTIONS: Please follow up at [facility] next week. Please reduce alcohol intake to 1 beverage/nightly.
[2017-12-03] MEDS ORDERED: PANTOPRAZOLE SODIUM 40 MG TAB PO SCH (09:00)
--- NOTE | 2017-12-04 12:07 | ECHO ---
[email or web address] [address] [address] Main: [phone] Fax: Transesophageal Echocardiography Name: DENISE GOLDBERG MR#: [id number] Study Date: 12/02/2017 Study Time: 09:31 AM Date of : 1950 Age: 67 year(s) Height: ( ) Weight: ( ) BSA: Gender: Female Examination: MATT Indication: A FIB Image Quality: Adequate Contrast: Requested by: Adam Sahu Heart Rate: Rhythm: BP: 116 mmHg/80 mmHg Procedure Staff Restaurant Cook: Germaine Kapoor MIGDALIA Reading Physician: Eloy Castro MD Requesting Provider: MATT Exam Details Conclusions: 1)Afib at 136bpm. 2)Normal LV size and systolic function with a LVEF of 55% and normal wall motions. 3)No clot or thrombus in any of four cardiac chambers or left atrial appendage. PW velocity in BRIAN 45 cm/sec. 4)Mild MR without MV prolapse. 5)Mild to moderate TR noted. 6)No ASD or PFO by color doppler and negative IV bubble study for intracardiac shunting. 7)Normal size ascending thoracic aorta with no dissection flap or atheroma noted. PLAN: proceed with CV to NSR. Measurements: Chambers Valvular Assessment AV/MV Valvular Assessment TV/PV Normal Normal Normal Name Value Range Name Value Range Name Value Range Visual EF: 55 % Additional Measurements: Findings: Left Ventricle: Normal size left ventricle. No LV hypertrophy. Normal global systolic LV function. The ejection fraction is visually estimated to be 55 %. No regional wall motion abnormality. Patient: DENISE GOLDBERG Study Date: 12/02/2017 Page 1 of 2 09:31 AM Right Ventricle: Normal size right ventricle. Normal RV function. Left Atrium: The left atrium is normal in size. Left Atrial Appendage: The left atrial appendage is unilobular. Good color flow doppler in the left atrial appendage. Normal PW-Doppler flow pattern. No thrombus in left appendage. Right Atrium: The right atrium is normal in size. Mitral Valve: The mitral valve is normal in appearance and function. Mild mitral valve regurgitation is present. No mitral stenosis is present. Aortic Valve: The aortic valve is tri-leaflet. There is no significant aortic valve regurgitation. No aortic valve stenosis is present. Tricuspid Valve: The tricuspid valve is normal in appearance and function. Mild to moderate tricuspid valve regurgitation. Pulmonic Valve: The pulmonic valve is normal in appearance and function. Mild pulmonic valve regurgitation is noted. l1n (No Signature Object) Patient: DENISE GOLDBERG Study Date: 12/02/2017 Page 2 of 2 09:31 AM [id number]
== END 2017-12-02 16:01 | disposition home or self-care (01) ==
LOC: F2W 13:14
PROVIDERS: ADMIT Internal Medicine; ATTEND Internal Medicine
DX: I48.91 Unspecified atrial fibrillation (principal); I24.8 Other forms of acute ischemic heart disease; M25.511 Pain in right shoulder; E86.9 Volume depletion, unspecified; E78.5 Hyperlipidemia, unspecified; Z85.850 Personal history of malignant neoplasm of thyroid; Z82.49 Family history of ischemic heart disease and other diseases of the circulatory system; Z96.651 Presence of right artificial knee joint
CPT/HCPCS: 71046; 93005; 93306; 93312; G0378; J1650; J2704; 84484-PO; 96374; J0461

== ENCOUNTER → 2017-12-13 | Outpatient (CLI) | payer OTHER | DX: I48.91 Unspecified atrial fibrillation (principal); R07.9 Chest pain, unspecified; E78.5 Hyperlipidemia, unspecified ==

== ENCOUNTER → 2017-12-21 | Outpatient (CLI) | payer OTHER | LOC: BHFA 08:30 | PROVIDERS: ATTEND Internal Medicine Interventional Cardiology | DX: I48.91 Unspecified atrial fibrillation (principal); R07.9 Chest pain, unspecified; E78.5 Hyperlipidemia, unspecified | CPT/HCPCS: 78452; 93017; A9500 ==